=== PATIENT | female | born 1950 | race Caucasian/White ===

== ENCOUNTER 2022-09-07 11:48 | Day surgery (SDC) | payer MEDICARE, OTHER ==
[~2022-09-07] VITALS: Ht 162.6 cm; Wt 75.0 kg
[~2022-09-07 11:48] MED LIST: LEVOTHYROXINE112 MC1 PO; MULTI VITAMIN1 EACH PO; NEURIVA PLUS B1 EACH PO; PANTOPRAZOLE SO40 MG PO; TYLENOL PM EXS1 EACH PO; WELLBUTRIN XL300 MG PO; ZOLOFT100 MG PO
[2022-09-07 12:09] VITALS: BP 132/78
--- NOTE | 2022-09-07 14:11 | NUR ---
09/07/22 1411 Vaishali Epps 1408-PATIENT ARRIVED TO PACU ON 2L NC RR EVEN. PATIENT AWAKE LAYING LEFT LATERAL DENIES PAIN OR NAUSEA. PASSING GAS. IVF INFUSING. PATIENT DOZES BACK TO SLEEP
[2022-09-07 15:01] VITALS: BP 123/67
--- NOTE | 2022-09-12 15:00 | PATH ---
[facility] [address] [facility] [place], [place] [address] Signed SPECIMEN(S): A ASCENDING/RIGHT COLON POLYP SPECIMEN(S): B RECTOSIGMOID POLYP SPECIMEN SOURCE: A. ASCENDING/RIGHT COLON POLYP B. RECTOSIGMOID POLYP CLINICAL HISTORY: Pre: History of polyps, family history of colon cancer. Post: Polyps x2, diverticula. FINAL PATHOLOGIC DIAGNOSIS: A. Ascending / right colon polyp: - Tubular adenoma (two fragments). B. Rectosigmoid polyp: - Hyperplastic polyp (two fragments). JVR:[facility]:C2NR MICROSCOPIC EXAMINATION: Histologic sections of all submitted blocks are examined by light microscopy. These findings, together with the gross examination, support the pathologic diagnosis. GROSS DESCRIPTION: A. The specimen, labeled and designated "Aung, L, 1." and designated on the requisition "ascending/right polypectomy," is received in formalin and consists of three landis soft tissue fragments that measure 0.3 to 0.4 cm in greatest dimension. The specimen is entirely submitted in (A1). B. The specimen, labeled and designated "Aung, L, 2." and designated on the requisition "rectosigmoid polypectomy," is received in formalin and consists of two landis soft tissue fragments that measure 0.3 and 0.4 cm in greatest dimension. The specimen is entirely submitted in (B1). FB (under the direct supervision of a pathologist) The Gross Description was prepared using a voice recognition system. The report was reviewed for accuracy; however, sound-alike word errors, addition and/or deletions may occur. If there is any question about this report, please contact Client Services. PERFORMING LABORATORY: PATIENT NAME: VERN ELLSWORTH PATHOLOGY DATE OF : 50 REPORT #: [id number] PHYSICIAN: JOHNNY MALLORY PCP: TRINH OSUNA MD REPORT IS CONFIDENTIAL AND NOT TO BE RELEASED WITHOUT AUTHORIZATION [facility] [address] [place], [place] [address] Signed Technical component was performed by [email or web address], [address] [place] [id number] (CLIA# [id number]). Professional interpretation was performed by [facility], [address] [place] [id number] (CLIA#: [id number]). Diagnostician: Keon Hicks MD Pathologist Electronically Signed 09/12/2022 Copies: ~ PATIENT NAME: VERN ELLSWORTH PATHOLOGY DATE OF : 50 REPORT #: [id number] PHYSICIAN: JOHNNY MALLORY PCP: TRINH OSUNA MD REPORT IS CONFIDENTIAL AND NOT TO BE RELEASED WITHOUT AUTHORIZATION
--- NOTE | 2022-09-13 10:30 | OR ---
[facility] [address] [place], [place] [address] Signed DATE OF OPERATION: 09/07/2022 SURGEON: Natalie Rivera MD PREOPERATIVE DIAGNOSES: 1. Colon screening. 2. Family history of colon cancer. POSTOPERATIVE DIAGNOSIS: Polyps x2. PROCEDURE: Total colonoscopy to the cecum with cold morcellation polypectomy x2. ANESTHESIA: Intravenous sedation; fentanyl 150 mcg and Versed 5 mg. INDICATION: This 71-year-old white woman is a patient of Dr. Yumiko Osuna and from [place] now in [place] for over eight years. She underwent colonoscopy five years ago in [place] by Dr. Elena. She is said to have had polyps at that time. She does have symptoms of diarrhea alternating with constipation and does have family history of colon cancer in a maternal grandmother. She is admitted at this time to undergo screening colonoscopy. She understands the risk of bleeding, infection and perforation. FINDINGS: The prep was good. Complete colonoscopy was undertaken to the cecum. Full intubation of the cecum was not forthcoming though there was no sign of obvious lesion otherwise. There were two small polyps, one in the right colon and the other in the rectosigmoid, both excised. There were a few diverticula as well. DESCRIPTION OF PROCEDURE: The patient was brought to the endoscopy suite and placed in the lateral decubitus position, given intravenous sedation to the point of slurred speech and nystagmus. Full cardiopulmonary monitoring was maintained. Digital rectal examination was normal. An Olympus video colonoscope was passed in the rectum and manipulated throughout the colon. Passage to the cecum was slightly challenging requiring various maneuvers, but visualization of the cecum could be undertaken. Upon withdrawal of the scope, a small adenomatous appearing polyp was noted in the mid ascending colon which was excised with Electronically Signed By: NATALIE RIVERA MD 09/13/22 1030 PATIENT NAME: VERN ELLSWORTH OPERATIVE REPORT DATE OF : 50 REPORT #: [id number] PHYSICIAN: NATALIE RIVERA MD PCP: YUMIKO OSUNA MD REPORT IS CONFIDENTIAL AND NOT TO BE RELEASED WITHOUT AUTHORIZATION [facility] [address] [place], [place] [address] Signed cold morcellation technique. Further withdrawal showed another similar such polyp in the rectosigmoid, this was excised as well. The retroflexed view of the rectum showed no sign of anorectal abnormality otherwise. The scope was removed and the patient was taken to the recovery room in good condition. CONCLUDING DIAGNOSIS: Polyps x2. PLAN: Recommend repeat colonoscopy in 3 to 5 years, sooner if clinically indicated. She will return to the ongoing care of Dr. Osuna. MD JOVANA Rodriguez/HARPAL /[id number] cc: Dr. Yumiko Osuna Copies: ~ Electronically Signed By: NATALIE RIVERA MD 09/13/22 1030 PATIENT NAME: VERN ELLSWORTH OPERATIVE REPORT DATE OF : 50 REPORT #: [id number] PHYSICIAN: NATALIE RIVERA MD PCP: YUMIKO OSUNA MD REPORT IS CONFIDENTIAL AND NOT TO BE RELEASED WITHOUT AUTHORIZATION
== END 2022-09-07 15:12 | disposition home or self-care (01) ==
LOC: DS 11:48 → OPS 11:48 → DS 14:00 → OPS 14:00
PROVIDERS: ATTEND Surgery
PROC: 0DBN8ZZ Excision of Sigmoid Colon, Via Natural or Artificial Opening Endoscopic (ICD-10-PCS; 2022-09-07)
PROC: 0DBK8ZZ Excision of Ascending Colon, Via Natural or Artificial Opening Endoscopic (ICD-10-PCS; principal; 2022-09-07 13:10)
DX: Z12.11 Encounter for screening for malignant neoplasm of colon (principal); D12.2 Benign neoplasm of ascending colon; K63.5 Polyp of colon; Z80.0 Family history of malignant neoplasm of digestive organs; K59.00 Constipation, unspecified; E03.9 Hypothyroidism, unspecified; K21.9 Gastro-esophageal reflux disease without esophagitis; F17.210 Nicotine dependence, cigarettes, uncomplicated; Z79.899 Other long term (current) drug therapy
CPT/HCPCS: 88305; 99153; G0500; J2250; J3010; J7121

== ENCOUNTER 2024-04-12 17:26 | Emergency (ER) | payer MEDICARE, OTHER ==
[~2024-04-12] VITALS: Ht 162.6 cm; Wt 76.7 kg
[2024-04-12] MEDS ORDERED: ROSUVASTATIN CA40 MG PO (17:42)
[2024-04-12 18:36] VITALS: BP 154/88
== END 2024-04-12 18:36 | disposition home or self-care (01) ==
LOC: ED 17:26
DX: S82.61XA Displaced fracture of lateral malleolus of right fibula, initial encounter for closed fracture (principal); E78.00 Pure hypercholesterolemia, unspecified; E03.9 Hypothyroidism, unspecified; K21.9 Gastro-esophageal reflux disease without esophagitis; Z79.899 Other long term (current) drug therapy; X50.1XXA Overexertion from prolonged static or awkward postures, initial encounter
CPT/HCPCS: 29515; 73610; 99283-25